=== PATIENT | female | born 1940 | race Caucasian/White ===

== ENCOUNTER → 2018-04-08 | Outpatient (CLI) | payer BC ==
[~2018-04-08] MED LIST: REGADENOSON 0.4 MG/5 ML SYRINGE ONE
== END | disposition home or self-care (01) ==
LOC: CFH 08:31
PROVIDERS: ATTEND Internal Medicine Cardiovascular Disease
DX: I65.21 Occlusion and stenosis of right carotid artery (principal); I73.9 Peripheral vascular disease, unspecified; I10 Essential (primary) hypertension
CPT/HCPCS: 93880; J2785

== ENCOUNTER → 2018-04-10 | Outpatient (CLI) | payer BC | END | disposition home or self-care (01) | LOC: CFH 08:40 | PROVIDERS: ATTEND Internal Medicine Cardiovascular Disease | DX: I65.21 Occlusion and stenosis of right carotid artery (principal); I73.9 Peripheral vascular disease, unspecified; I10 Essential (primary) hypertension; I45.10 Unspecified right bundle-branch block | CPT/HCPCS: 78452; 93017; A9502; J2785 ==

== ENCOUNTER → 2018-04-24 | Outpatient (CLI) | payer BC, MEDICARE | END | disposition home or self-care (01) | LOC: CVU 07:40 | PROVIDERS: ATTEND Internal Medicine Cardiovascular Disease | DX: I08.3 Combined rheumatic disorders of mitral, aortic and tricuspid valves (principal); I70.8 Atherosclerosis of other arteries; R06.02 Shortness of breath; E78.5 Hyperlipidemia, unspecified; E11.9 Type 2 diabetes mellitus without complications; Z85.3 Personal history of malignant neoplasm of breast | CPT/HCPCS: 93306; 93978 ==

== ENCOUNTER → 2018-05-06 | Outpatient (CLI) | payer BC, MEDICARE ==
[~2018-05-06] MED LIST changes: +ASPI-430 PO; +ATOR-2 PO; +AZIL40TA PO; +BIOT25005 PO; +EMPA10TA PO; +FERR1TAB10 PO; +GABA300C PO; +GLIP10TA13 PO; +INSU100V13 SC; +METF1000 PO; +MULT-658 PO; +NITR100C57 PO; +OMEP-110 PO; +PIOG30TA23 PO; -REGADENOSON 0.4 MG/5 ML SYRINGE ONE
== END | disposition home or self-care (01) ==
LOC: CFH 11:43
PROVIDERS: ATTEND Nurse Practitioner Family
DX: M85.88 Other specified disorders of bone density and structure, other site (principal); N95.9 Unspecified menopausal and perimenopausal disorder
CPT/HCPCS: 77080

== ENCOUNTER 2018-05-08 14:48 | Inpatient (IN) | payer MEDICARE ==
[~2018-05-08] VITALS: Ht 165.1 cm; Wt 80.0 kg
[2018-05-08] MEDS ORDERED: ASPIRIN 81 MG TABLET CHEW PO ONE (15:00)
[2018-05-08] MEDS ORDERED: ASPIRIN 81 MG TABLET CHEW ONE (15:11)
[2018-05-08 15:17] LABS: BASOPHILS % (AUTO) 0 % (0-1); EOSINOPHILS % (AUTO) 0 % (1-7); LYMPHOCYTES # (AUTO) 1.18 x10^3/uL (1-3.4); LYMPHOCYTES % (AUTO) 9 % (22-44); MD NO; MEAN CORPUSCULAR HEMOGLOBIN 29.2 pg (27.0-34.8); MEAN CORPUSCULAR HGB CONC 32.2 g/dL (32.4-35.8); MEAN CORPUSCULAR VOLUME 90.8 fL (80-100); MEAN PLATELET VOLUME 8.6 fL (7.4-10.4); MONOCYTES # (AUTO) 1.32 x10^3/uL (0.2-0.8); MONOCYTES % (AUTO) 10 % (2-9); NEUTROPHILS # (AUTO) 10.59 x10^3/uL (1.8-6.8); NEUTROPHILS % (AUTO) 81 % (42-75); PLATELET COUNT 278 x10^3/uL (130-400); RED BLOOD COUNT 4.35 x10^6/uL (3.82-5.3); RED CELL DISTRIBUTION WIDTH 16.5 % (9.6-15.2)
[2018-05-08 15:29] LABS: ALBUMIN 3.7 g/dL (3.4-5.0); ANION GAP 10 mmol/L (5-15); CALCIUM 9.5 mg/dL (8.5-10.1); CHLORIDE 106 mmol/L (98-107)
[2018-05-08 15:33] LABS: CREATININE 1.37 mg/dL (0.55-1.02); TROPONIN I < 0.015 ng/mL (0.000-0.045)
[2018-05-08] MEDS ORDERED: NITROGLYCERIN SINGLE TAB 0.4 MG SL ONE (15:46)
[2018-05-08] MEDS ORDERED: SODIUM CHLORIDE FLUSH 10ML SYR IVF ONE (16:00)
[2018-05-08] MEDS ORDERED: NITROGLYCERIN SINGLE TAB 0.4 MG SL PRN (16:00)
[2018-05-08] MEDS ORDERED: NITROGLYCERIN 0.4 MG BOTTLE (25 TABS) SL PRN (18:30)
[2018-05-08] MEDS ORDERED: ONDANSETRON ODT 4 MG PO PRN (18:30)
[2018-05-08] MEDS ORDERED: POLYETHYLENE GLYCOL 17 GM PACKET PO PRN (18:30)
[2018-05-08] MEDS ORDERED: BISACODYL 10 MG SUPP PR PRN (18:30)
[2018-05-08] MEDS ORDERED: morphine SULFATE 10 MG/ML, 1ML IVPush PRN (18:30)
[2018-05-08 19:32] LABS: HEMOGLOBIN A1C 8.1 % (4.2-6.3)
[2018-05-08 19:59] VITALS: BP 121/70
[2018-05-08] MEDS: SODIUM CHLORIDE 0.9% 1,000 ML IV SCH (21:33)
[2018-05-08] MEDS: CEFTRIAXONE PMX 1GM/50ML 50 ML IV SCH (21:33)
[2018-05-08] MEDS: ACETAMINOPHEN 325 MG TABLET PO PRN (21:34)
[2018-05-08 21:41] LABS: TROPONIN I < 0.015 ng/mL (0.000-0.045)
[2018-05-08] MEDS: HEPARIN 5,000 UNITS/ML, 1ML SQ SCH (22:18)
[2018-05-08] MEDS: DOXYCYCLINE 100 MG in DEXTROSE 5% 250 ML IV SCH (22:18)
[2018-05-08] MEDS ORDERED: BIOT25005 PO (22:44)
[2018-05-08] MEDS ORDERED: ASPI-430 PO (22:44)
[2018-05-08] MEDS ORDERED: GLIP10TA13 PO (22:44)
[2018-05-08] MEDS ORDERED: GABA300C PO (22:44)
[2018-05-08] MEDS ORDERED: ATOR-2 PO (22:44)
[2018-05-08] MEDS ORDERED: EMPA10TA PO (22:44)
[2018-05-08] MEDS ORDERED: INSU100V13 SC (22:44)
[2018-05-08] MEDS ORDERED: MULT-658 PO (22:44)
[2018-05-08] MEDS ORDERED: PIOG30TA23 PO (22:44)
[2018-05-08] MEDS ORDERED: FERR1TAB10 PO (22:44)
[2018-05-08] MEDS ORDERED: NITR100C57 PO (22:44)
[2018-05-08] MEDS ORDERED: METF1000 PO (22:44)
[2018-05-08] MEDS ORDERED: OMEP-110 PO (22:44)
[2018-05-08] MEDS ORDERED: AZIL40TA PO (22:44)
[2018-05-08] MEDS ORDERED: KETOROLAC 30 MG/1 ML IVPush PRN (23:00)
[2018-05-09 03:15] VITALS: BP 115/68
[2018-05-09 03:43] LABS: BASOPHILS # (AUTO) 0.03 x10^3/uL (0-0.1); BASOPHILS % (AUTO) 0 % (0-1); EOSINOPHILS # (AUTO) 0.26 x10^3/uL (0-0.4); EOSINOPHILS % (AUTO) 3 % (1-7); LYMPHOCYTES # (AUTO) 1.86 x10^3/uL (1-3.4); LYMPHOCYTES % (AUTO) 22 % (22-44); MD NO; MEAN CORPUSCULAR HEMOGLOBIN 29.8 pg (27.0-34.8); MEAN CORPUSCULAR HGB CONC 32.9 g/dL (32.4-35.8); MEAN CORPUSCULAR VOLUME 90.4 fL (80-100); MEAN PLATELET VOLUME 8.8 fL (7.4-10.4); MONOCYTES # (AUTO) 0.91 x10^3/uL (0.2-0.8); MONOCYTES % (AUTO) 11 % (2-9); NEUTROPHILS # (AUTO) 5.34 x10^3/uL (1.8-6.8); NEUTROPHILS % (AUTO) 64 % (42-75); PLATELET COUNT 196 x10^3/uL (130-400); RED CELL DISTRIBUTION WIDTH 16.3 % (9.6-15.2)
[2018-05-09 03:44] LABS: ALANINE AMINOTRANSFERASE 20 U/L (12-78); ALBUMIN 2.8 g/dL (3.4-5.0); ANION GAP 8 mmol/L (5-15); CALCIUM 8.2 mg/dL (8.5-10.1); CHLORIDE 109 mmol/L (98-107); CREATININE 1.22 mg/dL (0.55-1.02)
[2018-05-09 03:49] LABS: ALKALINE PHOSPHATASE 67 U/L (45-117); BILIRUBIN,TOTAL 0.5 mg/dL (0.2-1.0); TOTAL PROTEIN 6.8 g/dL (6.4-8.2); TROPONIN I 0.036 ng/mL (0.000-0.045)
[2018-05-09] MEDS: HEPARIN 5,000 UNITS/ML, 1ML SQ SCH ×3 (05:49→22:00)
[2018-05-09] MEDS: ASPIRIN 81 MG TABLET EC PO SCH (05:59)
[2018-05-09] MEDS ORDERED: ASPIRIN 325 MG TABLET EC PO SCH (06:00)
[2018-05-09] MEDS: SENNA/DOCUSATE TABLET PO SCH (09:00)
[2018-05-09 09:03] VITALS: BP 116/69
[2018-05-09] MEDS: SODIUM CHLORIDE 0.9% 1,000 ML IV SCH ×2 (09:21→21:41)
[2018-05-09] MEDS: DOXYCYCLINE 100 MG in DEXTROSE 5% 250 ML IV SCH ×2 (09:21→22:40)
[2018-05-09] MEDS ORDERED: NITROFURANTOIN MACROCRYSTAL 100 MG PO PRN (11:30)
[2018-05-09] MEDS ORDERED: INSULIN GLARGINE 100 UNITS/ML, PEN SQ-INSULIN SCH (11:30)
[2018-05-09] MEDS: [UNRECOGNIZED DRUG - REMARK] MC SCH ×2 (12:00→19:49)
[2018-05-09 14:03] VITALS: BP 129/73
[2018-05-09 19:23] VITALS: BP 128/70
[2018-05-09] MEDS: CEFTRIAXONE PMX 1GM/50ML 50 ML IV SCH (21:41)
[2018-05-09] MEDS: ATORVASTATIN 80 MG TABLET PO SCH (21:42)
[2018-05-09] MEDS: metFORMIN 500 MG TABLET PO SCH (21:42)
[2018-05-09] MEDS: GABAPENTIN 300 MG CAPSULE PO SCH (21:42)
[2018-05-09] MEDS: INSULIN DETEMIR 100 UNITS/ML, PEN SQ-INSULIN SCH (21:44)
[2018-05-10 01:19] VITALS: BP 120/73
[2018-05-10] MEDS: [UNRECOGNIZED DRUG - REMARK] MC SCH ×3 (04:00→19:49)
[2018-05-10 05:21] LABS: ANION GAP 8 mmol/L (5-15); CALCIUM 8.4 mg/dL (8.5-10.1); CHLORIDE 111 mmol/L (98-107)
[2018-05-10 05:28] LABS: CREATININE 0.88 mg/dL (0.55-1.02); TROPONIN I 0.896 ng/mL (0.000-0.045)
[2018-05-10] MEDS: ASPIRIN 81 MG TABLET EC PO SCH (05:55)
[2018-05-10] MEDS: HEPARIN 5,000 UNITS/ML, 1ML SQ SCH ×3 (06:00→22:00)
[2018-05-10 06:46] VITALS: BP 149/78
[2018-05-10 06:51] LABS: BASOPHILS # (AUTO) 0.06 x10^3/uL (0-0.1); BASOPHILS % (AUTO) 1 % (0-1); EOSINOPHILS # (AUTO) 0.28 x10^3/uL (0-0.4); EOSINOPHILS % (AUTO) 3 % (1-7); LYMPHOCYTES # (AUTO) 1.96 x10^3/uL (1-3.4); LYMPHOCYTES % (AUTO) 20 % (22-44); MD NO; MEAN CORPUSCULAR HEMOGLOBIN 29.7 pg (27.0-34.8); MEAN CORPUSCULAR HGB CONC 32.9 g/dL (32.4-35.8); MEAN CORPUSCULAR VOLUME 90.3 fL (80-100); MEAN PLATELET VOLUME 8.6 fL (7.4-10.4); MONOCYTES # (AUTO) 0.82 x10^3/uL (0.2-0.8); MONOCYTES % (AUTO) 8 % (2-9); NEUTROPHILS # (AUTO) 6.65 x10^3/uL (1.8-6.8); NEUTROPHILS % (AUTO) 68 % (42-75); PLATELET COUNT 238 x10^3/uL (130-400); RED BLOOD COUNT 3.99 x10^6/uL (3.82-5.3); RED CELL DISTRIBUTION WIDTH 16.1 % (9.6-15.2)
[2018-05-10] MEDS: INSULIN DETEMIR 100 UNITS/ML, PEN SQ-INSULIN SCH ×2 (08:00→20:27)
[2018-05-10] MEDS: SENNA/DOCUSATE TABLET PO SCH (08:55)
[2018-05-10] MEDS: OMEPRAZOLE 20 MG CAPSULE.DR PO SCH (08:55)
[2018-05-10] MEDS: PIOGLITAZONE 15 MG TABLET PO SCH (08:55)
[2018-05-10] MEDS: FERROUS SULFATE 325 MG TABLET PO SCH (08:55)
[2018-05-10] MEDS: MULTIVITAMIN 1 TABLET PO SCH (08:55)
[2018-05-10] MEDS: metFORMIN 500 MG TABLET PO SCH ×2 (08:56→20:28)
[2018-05-10] MEDS ORDERED: ASPIRIN 81 MG TABLET EC PO SCH (09:00)
[2018-05-10] MEDS: AZILSARTAN MEDOXOMIL 40 MG HOMEMEDPO SCH (09:00)
[2018-05-10] MEDS ORDERED: BIOTIN 10000 MCG PO SCH (09:00)
[2018-05-10] MEDS: EMPAGLIFLOZIN 10 MG HOMEMEDPO SCH (09:00)
[2018-05-10] MEDS: SODIUM CHLORIDE 0.9% 1,000 ML IV SCH ×2 (09:03→20:04)
[2018-05-10] MEDS: DOXYCYCLINE 100 MG in DEXTROSE 5% 250 ML IV SCH ×2 (10:39→22:38)
[2018-05-10 12:46] VITALS: BP 133/76
[2018-05-10] MEDS: ACETAMINOPHEN 325 MG TABLET PO PRN ×2 (13:38→20:43)
[2018-05-10 19:03] VITALS: BP 117/66
[2018-05-10] MEDS: CEFTRIAXONE PMX 1GM/50ML 50 ML IV SCH (20:27)
[2018-05-10] MEDS: ATORVASTATIN 80 MG TABLET PO SCH (20:28)
[2018-05-10] MEDS: GABAPENTIN 300 MG CAPSULE PO SCH (20:29)
[2018-05-11] MEDS ORDERED: TEMAZEPAM 15 MG CAPSULE PO PRN (01:00)
[2018-05-11 01:25] VITALS: BP 151/70
[2018-05-11 04:48] LABS: BASOPHILS # (AUTO) 0.04 x10^3/uL (0-0.1); BASOPHILS % (AUTO) 1 % (0-1); EOSINOPHILS # (AUTO) 0.34 x10^3/uL (0-0.4); EOSINOPHILS % (AUTO) 4 % (1-7); LYMPHOCYTES # (AUTO) 1.68 x10^3/uL (1-3.4); LYMPHOCYTES % (AUTO) 22 % (22-44); MD NO; MEAN CORPUSCULAR HEMOGLOBIN 29.8 pg (27.0-34.8); MEAN CORPUSCULAR HGB CONC 32.9 g/dL (32.4-35.8); MEAN CORPUSCULAR VOLUME 90.7 fL (80-100); MEAN PLATELET VOLUME 8.6 fL (7.4-10.4); MONOCYTES # (AUTO) 0.76 x10^3/uL (0.2-0.8); MONOCYTES % (AUTO) 10 % (2-9); NEUTROPHILS # (AUTO) 4.97 x10^3/uL (1.8-6.8); NEUTROPHILS % (AUTO) 64 % (42-75); PLATELET COUNT 226 x10^3/uL (130-400); RED BLOOD COUNT 3.74 x10^6/uL (3.82-5.3); RED CELL DISTRIBUTION WIDTH 15.9 % (9.6-15.2)
[2018-05-11 05:00] LABS: ANION GAP 9 mmol/L (5-15); CALCIUM 8.6 mg/dL (8.5-10.1); CHLORIDE 112 mmol/L (98-107); CREATININE 0.94 mg/dL (0.55-1.02)
[2018-05-11 05:57] LABS: INTERNATIONAL NORMALIZED RATIO 1.06 (0.93-1.1); PROTHROMBIN TIME 11.1 Seconds (9.6-11.5)
[2018-05-11] MEDS: HEPARIN 5,000 UNITS/ML, 1ML SQ SCH ×3 (06:00→22:00)
[2018-05-11] MEDS: ASPIRIN 81 MG TABLET EC PO SCH (06:07)
[2018-05-11 06:52] VITALS: BP 134/75
[2018-05-11] MEDS: INSULIN DETEMIR 100 UNITS/ML, PEN SQ-INSULIN SCH ×2 (08:00→20:51)
[2018-05-11] MEDS: MULTIVITAMIN 1 TABLET PO SCH (09:00)
[2018-05-11] MEDS: OMEPRAZOLE 20 MG CAPSULE.DR PO SCH (09:00)
[2018-05-11] MEDS: EMPAGLIFLOZIN 10 MG HOMEMEDPO SCH (09:00)
[2018-05-11] MEDS: SENNA/DOCUSATE TABLET PO SCH (09:00)
[2018-05-11] MEDS: AZILSARTAN MEDOXOMIL 40 MG HOMEMEDPO SCH (09:00)
[2018-05-11] MEDS: PIOGLITAZONE 15 MG TABLET PO SCH (09:00)
[2018-05-11] MEDS: FERROUS SULFATE 325 MG TABLET PO SCH (09:00)
[2018-05-11] MEDS: DIPHENHYDRAMINE 50 MG CAPSULE PO SCH ×2 (09:56→20:51)
[2018-05-11] MEDS: FAMOTIDINE 20 MG TABLET PO SCH ×2 (09:56→20:51)
[2018-05-11] MEDS: DOXYCYCLINE 100 MG in DEXTROSE 5% 250 ML IV SCH ×2 (10:19→22:48)
[2018-05-11] MEDS: SODIUM CHLORIDE 0.9% 1,000 ML IV SCH (10:19)
[2018-05-11] MEDS ORDERED: SODIUM CHLORIDE 0.9% 1,000 ML IV SCH ×2 (11:00→15:56)
[2018-05-11 12:23] VITALS: BP 127/75
[2018-05-11] MEDS ORDERED: VERAPAMIL 2.5 MG/ML, 2ML ONE (13:53)
[2018-05-11] MEDS ORDERED: FENTANYL PF 100 MCG/2ML ONE (13:53)
[2018-05-11] MEDS ORDERED: HEPARIN 1,000 UNITS/ML, 10ML ONE (13:53)
[2018-05-11] MEDS ORDERED: MIDAZOLAM 1 MG/ML, 2ML ONE ×2 (13:53→15:07)
[2018-05-11] MEDS ORDERED: LIDOCAINE-MPF 1%, 5ML ONE (13:53)
[2018-05-11] MEDS ORDERED: methylPREDNISolone SOD SUCC 125 MG/2 ML ONE (13:54)
[2018-05-11] MEDS ORDERED: DIPHENHYDRAMINE 50 MG/ML, 1ML ONE (13:54)
[2018-05-11 18:42] VITALS: BP 120/72
[2018-05-11] MEDS: CEFTRIAXONE PMX 1GM/50ML 50 ML IV SCH (20:50)
[2018-05-11] MEDS: ATORVASTATIN 80 MG TABLET PO SCH (20:51)
[2018-05-11] MEDS: GABAPENTIN 300 MG CAPSULE PO SCH (20:51)
[2018-05-12 00:52] VITALS: BP 123/73
[2018-05-12] MEDS: HEPARIN 5,000 UNITS/ML, 1ML SQ SCH ×3 (05:15→22:00)
[2018-05-12 06:09] LABS: CHLORIDE 109 mmol/L (98-107)
[2018-05-12] MEDS: ASPIRIN 81 MG TABLET EC PO SCH (06:13)
[2018-05-12 06:25] LABS: BASOPHILS % (AUTO) 0 % (0-1); EOSINOPHILS % (AUTO) 0 % (1-7); LYMPHOCYTES % (AUTO) 12 % (22-44); MD SCAN; MEAN CORPUSCULAR HEMOGLOBIN 29.9 pg (27.0-34.8); MEAN CORPUSCULAR HGB CONC 33.1 g/dL (32.4-35.8); MEAN CORPUSCULAR VOLUME 90.1 fL (80-100); MEAN PLATELET VOLUME 9.1 fL (7.4-10.4); MONOCYTES # (AUTO) 0.13 x10^3/uL (0.2-0.8); MONOCYTES % (AUTO) 1 % (2-9); NEUTROPHILS # (AUTO) 8.11 x10^3/uL (1.8-6.8); NEUTROPHILS % (AUTO) 87 % (42-75); PLATELET COUNT 230 x10^3/uL (130-400); RED BLOOD COUNT 4.31 x10^6/uL (3.82-5.3); RED CELL DISTRIBUTION WIDTH 15.6 % (9.6-15.2)
[2018-05-12 06:28] LABS: ANION GAP 11 mmol/L (5-15); CALCIUM 9.2 mg/dL (8.5-10.1); CREATININE 0.97 mg/dL (0.55-1.02)
[2018-05-12 06:58] VITALS: BP 144/76
[2018-05-12] MEDS: INSULIN DETEMIR 100 UNITS/ML, PEN SQ-INSULIN SCH ×2 (08:00→21:34)
[2018-05-12] MEDS: SENNA/DOCUSATE TABLET PO SCH (08:13)
[2018-05-12] MEDS: MULTIVITAMIN 1 TABLET PO SCH (08:13)
[2018-05-12] MEDS: PIOGLITAZONE 15 MG TABLET PO SCH (08:13)
[2018-05-12] MEDS: OMEPRAZOLE 20 MG CAPSULE.DR PO SCH (08:13)
[2018-05-12] MEDS: FERROUS SULFATE 325 MG TABLET PO SCH (08:13)
[2018-05-12] MEDS: EMPAGLIFLOZIN 10 MG HOMEMEDPO SCH (08:14)
[2018-05-12] MEDS: AZILSARTAN MEDOXOMIL 40 MG HOMEMEDPO SCH (08:14)
[2018-05-12] MEDS: DOXYCYCLINE 100 MG in DEXTROSE 5% 250 ML IV SCH ×2 (10:09→22:00)
[2018-05-12 13:29] VITALS: BP 118/67
[2018-05-12 20:00] VITALS: BP 110/63
[2018-05-12] MEDS: CEFTRIAXONE PMX 1GM/50ML 50 ML IV SCH ×2 (21:00→21:16)
[2018-05-12] MEDS: ATORVASTATIN 80 MG TABLET PO SCH (21:17)
[2018-05-12] MEDS: GABAPENTIN 300 MG CAPSULE PO SCH (21:17)
[2018-05-13] MEDS: HEPARIN 5,000 UNITS/ML, 1ML SQ SCH ×3 (00:11→19:52)
[2018-05-13 02:00] VITALS: BP 128/74
[2018-05-13] MEDS: ASPIRIN 81 MG TABLET EC PO SCH (05:08)
[2018-05-13 05:35] LABS: ANION GAP 9 mmol/L (5-15); CHLORIDE 111 mmol/L (98-107); CREATININE 1.03 mg/dL (0.55-1.02)
[2018-05-13 05:56] LABS: BASOPHILS # (AUTO) 0.04 x10^3/uL (0-0.1); BASOPHILS % (AUTO) 1 % (0-1); EOSINOPHILS # (AUTO) 0.26 x10^3/uL (0-0.4); EOSINOPHILS % (AUTO) 3 % (1-7); LYMPHOCYTES # (AUTO) 1.86 x10^3/uL (1-3.4); LYMPHOCYTES % (AUTO) 20 % (22-44); MD NO; MEAN CORPUSCULAR VOLUME 90.9 fL (80-100); MEAN PLATELET VOLUME 8.4 fL (7.4-10.4); MONOCYTES # (AUTO) 0.72 x10^3/uL (0.2-0.8); MONOCYTES % (AUTO) 8 % (2-9); NEUTROPHILS # (AUTO) 6.54 x10^3/uL (1.8-6.8); NEUTROPHILS % (AUTO) 69 % (42-75); PLATELET COUNT 292 x10^3/uL (130-400); RED BLOOD COUNT 3.99 x10^6/uL (3.82-5.3); RED CELL DISTRIBUTION WIDTH 15.6 % (9.6-15.2)
[2018-05-13 07:15] VITALS: BP 128/74
[2018-05-13] MEDS ORDERED: POTASSIUM CHLORIDE 20 MEQ TAB.ER.PRT PO ONE ×2 (07:30→14:00)
[2018-05-13] MEDS: FERROUS SULFATE 325 MG TABLET PO SCH ×2 (08:34→09:00)
[2018-05-13] MEDS: INSULIN DETEMIR 100 UNITS/ML, PEN SQ-INSULIN SCH ×2 (08:34→21:24)
[2018-05-13] MEDS: SENNA/DOCUSATE TABLET PO SCH (08:35)
[2018-05-13] MEDS: MULTIVITAMIN 1 TABLET PO SCH (08:35)
[2018-05-13] MEDS: OMEPRAZOLE 20 MG CAPSULE.DR PO SCH (08:35)
[2018-05-13] MEDS: PIOGLITAZONE 15 MG TABLET PO SCH (08:35)
[2018-05-13] MEDS: AZILSARTAN MEDOXOMIL 40 MG HOMEMEDPO SCH (08:37)
[2018-05-13] MEDS: EMPAGLIFLOZIN 10 MG HOMEMEDPO SCH (08:38)
[2018-05-13] MEDS: DOXYCYCLINE 100 MG in DEXTROSE 5% 250 ML IV SCH (10:00)
[2018-05-13 13:50] VITALS: BP 103/63
[2018-05-13] MEDS: CEFDINIR 300 MG CAPSULE PO SCH (16:18)
[2018-05-13 19:51] VITALS: BP 117/94
[2018-05-13] MEDS ORDERED: DOXYCYCLINE 100MG TABLET ONE (21:07)
[2018-05-13] MEDS: DOXYCYCLINE 100MG CAP PO SCH (21:21)
[2018-05-13] MEDS: GABAPENTIN 300 MG CAPSULE PO SCH (21:21)
[2018-05-13] MEDS: metFORMIN 500 MG TABLET PO SCH (21:22)
[2018-05-13] MEDS: ATORVASTATIN 80 MG TABLET PO SCH (21:22)
[2018-05-14 01:22] VITALS: BP 109/64
[2018-05-14] MEDS: HEPARIN 5,000 UNITS/ML, 1ML SQ SCH ×3 (04:03→19:21)
[2018-05-14] MEDS: ASPIRIN 81 MG TABLET EC PO SCH (04:41)
[2018-05-14] MEDS: CEFDINIR 300 MG CAPSULE PO SCH ×2 (04:41→18:03)
[2018-05-14 05:44] LABS: ANION GAP 8 mmol/L (5-15); CALCIUM 8.9 mg/dL (8.5-10.1); CHLORIDE 110 mmol/L (98-107); CREATININE 1.15 mg/dL (0.55-1.02)
[2018-05-14 07:02] VITALS: BP 114/72
[2018-05-14] MEDS ORDERED: DOXYCYCLINE 100MG TABLET ONE ×3 (08:01→21:04)
[2018-05-14] MEDS: PIOGLITAZONE 15 MG TABLET PO SCH (08:17)
[2018-05-14] MEDS: metFORMIN 500 MG TABLET PO SCH ×2 (08:17→21:11)
[2018-05-14] MEDS: SENNA/DOCUSATE TABLET PO SCH (08:17)
[2018-05-14] MEDS: MULTIVITAMIN 1 TABLET PO SCH (08:18)
[2018-05-14] MEDS: DOXYCYCLINE 100MG CAP PO SCH ×2 (08:18→21:10)
[2018-05-14] MEDS: OMEPRAZOLE 20 MG CAPSULE.DR PO SCH (08:18)
[2018-05-14] MEDS: FERROUS SULFATE 325 MG TABLET PO SCH (08:18)
[2018-05-14] MEDS: INSULIN DETEMIR 100 UNITS/ML, PEN SQ-INSULIN SCH ×2 (08:19→22:06)
[2018-05-14] MEDS: AZILSARTAN MEDOXOMIL 40 MG HOMEMEDPO SCH (08:19)
[2018-05-14] MEDS: EMPAGLIFLOZIN 10 MG HOMEMEDPO SCH (08:20)
[2018-05-14] MEDS ORDERED: CEFD300C37 PO (12:09)
[2018-05-14] MEDS ORDERED: DOXY100C2 PO (12:09)
[2018-05-14 13:11] VITALS: BP 94/61
[2018-05-14 20:12] VITALS: BP 111/68
[2018-05-14] MEDS: ATORVASTATIN 80 MG TABLET PO SCH (21:11)
[2018-05-14] MEDS: GABAPENTIN 300 MG CAPSULE PO SCH (21:11)
[2018-05-15 03:59] VITALS: BP 95/56
[2018-05-15] MEDS: ASPIRIN 81 MG TABLET EC PO SCH (04:03)
[2018-05-15] MEDS: CEFDINIR 300 MG CAPSULE PO SCH (04:03)
[2018-05-15] MEDS: HEPARIN 5,000 UNITS/ML, 1ML SQ SCH (04:04)
[2018-05-15 07:10] VITALS: BP 94/55
[2018-05-15] MEDS: PIOGLITAZONE 15 MG TABLET PO SCH (10:18)
[2018-05-15] MEDS: metFORMIN 500 MG TABLET PO SCH (10:18)
[2018-05-15] MEDS: MULTIVITAMIN 1 TABLET PO SCH (10:19)
[2018-05-15] MEDS: SENNA/DOCUSATE TABLET PO SCH (10:19)
[2018-05-15] MEDS: FERROUS SULFATE 325 MG TABLET PO SCH (10:19)
[2018-05-15] MEDS: DOXYCYCLINE 100MG CAP PO SCH (10:19)
[2018-05-15] MEDS: OMEPRAZOLE 20 MG CAPSULE.DR PO SCH (10:19)
[2018-05-15] MEDS: AZILSARTAN MEDOXOMIL 40 MG HOMEMEDPO SCH (10:22)
[2018-05-15] MEDS: INSULIN DETEMIR 100 UNITS/ML, PEN SQ-INSULIN SCH (10:22)
[2018-05-15] MEDS: EMPAGLIFLOZIN 10 MG HOMEMEDPO SCH (10:23)
[2018-05-15] MEDS ORDERED: METO25TA91 PO (13:32)
[2018-05-15 14:05] VITALS: BP 107/61
== END 2018-05-15 15:17 | disposition home or self-care (01) | DRG 280 ==
LOC: ED 16:00 → EDIP 17:22 → 5SO 18:30 → DCLOUNGE 05-15 14:51
PROVIDERS: ADMIT Internal Medicine; ATTEND Internal Medicine
PROC: 4A023N7 Measurement of Cardiac Sampling and Pressure, Left Heart, Percutaneous Approach (ICD-10-PCS; principal; 2018-05-11)
PROC: B2111ZZ Fluoroscopy of Multiple Coronary Arteries using Low Osmolar Contrast (ICD-10-PCS; 2018-05-11)
PROC: B241ZZ3 Ultrasonography of Multiple Coronary Arteries, Intravascular (ICD-10-PCS; 2018-05-11)
DX: I21.4 Non-ST elevation (NSTEMI) myocardial infarction (principal); J18.9 Pneumonia, unspecified organism; E11.22 Type 2 diabetes mellitus with diabetic chronic kidney disease; E11.40 Type 2 diabetes mellitus with diabetic neuropathy, unspecified; E11.65 Type 2 diabetes mellitus with hyperglycemia; E78.5 Hyperlipidemia, unspecified; E87.6 Hypokalemia; I08.0 Rheumatic disorders of both mitral and aortic valves; I13.10 Hypertensive heart and chronic kidney disease without heart failure, with stage 1 through stage 4 chronic kidney disease, or unspecified chronic kidney disease; I25.10 Atherosclerotic heart disease of native coronary artery without angina pectoris; I95.9 Hypotension, unspecified; E11.51 Type 2 diabetes mellitus with diabetic peripheral angiopathy without gangrene; N18.9 Chronic kidney disease, unspecified; Z96.698 Presence of other orthopedic joint implants; H26.9 Unspecified cataract; M54.9 Dorsalgia, unspecified; Z90.49 Acquired absence of other specified parts of digestive tract; Z79.4 Long term (current) use of insulin; Z82.3 Family history of stroke; Z82.49 Family history of ischemic heart disease and other diseases of the circulatory system; Z85.3 Personal history of malignant neoplasm of breast; Z87.891 Personal history of nicotine dependence; Z91.041 Radiographic dye allergy status; Z92.3 Personal history of irradiation; Z95.5 Presence of coronary angioplasty implant and graft; Z88.2 Allergy status to sulfonamides; Z88.5 Allergy status to narcotic agent
CPT/HCPCS: 36415; 71046; 80048; 80053; 82040; 82962; 83036; 83605; 83880; 84484; 85025; 85610; 87040; 92978; 93005; 93454; 99156; 99157; 99285; C1753; C1894; G0378; J0696; J1644; J1885; J2250; J3010; J7060; C1769; C1887; J1200; J2930; J7030; J7512; Q9967

== ENCOUNTER → 2018-06-01 | Outpatient (CLI) | payer MEDICARE ==
[~2018-06-01] MED LIST changes: +CEFD300C37 PO; +DIPHENHYDRAMINE 50 MG/ML, 1ML ONE; +DOXY100C2 PO; +FAMOTIDINE 20 MG/2 ML ONE; +LIDOCAINE 1%, 10ML SQ ONE; +LIDOCAINE-MPF 1%, 5ML ONE; +METO25TA91 PO; +METOPROLOL 1 MG/ML, 5ML ONE; +methylPREDNISolone SOD SUCC 125 MG/2 ML ONE
== END | disposition home or self-care (01) ==
LOC: RAD 11:39
PROVIDERS: ATTEND Internal Medicine Cardiovascular Disease
DX: I35.0 Nonrheumatic aortic (valve) stenosis (principal)
CPT/HCPCS: 94060; 94726; 94729; J1200; J2930; J3490

== ENCOUNTER 2018-06-12 10:38 | Outpatient (CLI) | payer MEDICARE ==
[~2018-06-12 10:38] MED LIST changes: -DIPHENHYDRAMINE 50 MG/ML, 1ML ONE; -FAMOTIDINE 20 MG/2 ML ONE; -LIDOCAINE 1%, 10ML SQ ONE; -LIDOCAINE-MPF 1%, 5ML ONE; -METOPROLOL 1 MG/ML, 5ML ONE; -methylPREDNISolone SOD SUCC 125 MG/2 ML ONE
[2018-06-12] MEDS ORDERED: DIPHENHYDRAMINE 50 MG/ML, 1ML ONE (12:00)
[2018-06-12] MEDS ORDERED: FAMOTIDINE 20 MG/2 ML ONE (12:00)
[2018-06-12] MEDS ORDERED: methylPREDNISolone SOD SUCC 125 MG/2 ML ONE (12:00)
[2018-06-12] MEDS ORDERED: METOPROLOL 1 MG/ML, 5ML ONE ×2 (12:33→12:52)
[2018-06-12] MEDS ORDERED: OMNIPAQUE 350 MG/ML, 150 ML BOTTLE ONE (13:22)
== END 2018-06-12 23:59 | disposition home or self-care (01) ==
LOC: RAD 10:38
PROVIDERS: ATTEND Internal Medicine Cardiovascular Disease
DX: I70.0 Atherosclerosis of aorta (principal); E04.2 Nontoxic multinodular goiter; K76.0 Fatty (change of) liver, not elsewhere classified; N28.1 Cyst of kidney, acquired; K57.30 Diverticulosis of large intestine without perforation or abscess without bleeding; D25.9 Leiomyoma of uterus, unspecified; M51.37 Other intervertebral disc degeneration, lumbosacral region; I25.10 Atherosclerotic heart disease of native coronary artery without angina pectoris
CPT/HCPCS: 71275; 74174; J1200; J2930; J3490; Q9967

== ENCOUNTER 2018-06-23 07:37 | Inpatient (IN) | payer MEDICARE ==
[~2018-06-23] VITALS: Ht 165.1 cm; Wt 79.9 kg
[2018-06-23] MEDS ORDERED: SODIUM CHLORIDE 0.9% 1,000 ML IV ONE (07:59)
[2018-06-23] MEDS ORDERED: ONDANSETRON 2MG/ML, 2ML IVPush PRN (08:00)
[2018-06-23] MEDS ORDERED: methylPREDNISolone SOD SUCC 125 MG/2 ML IVPush ONE (08:00)
[2018-06-23] MEDS ORDERED: FAMOTIDINE 20 MG/2 ML IVPush ONE (08:00)
[2018-06-23] MEDS ORDERED: CHLORHEXIDINE 15 ML UDC MM PRN (08:00)
[2018-06-23] MEDS ORDERED: DIPHENHYDRAMINE 50 MG/ML, 1ML IVPush ONE (08:00)
[2018-06-23 08:05] VITALS: BP 128/55
[2018-06-23] MEDS ORDERED: PLEASE ENTER HEIGHT AND WEIGHT MC SCH (08:30)
[2018-06-23] MEDS ORDERED: FAMOTIDINE 20 MG/2 ML ONE (08:30)
[2018-06-23] MEDS ORDERED: methylPREDNISolone SOD SUCC 125 MG/2 ML ONE (08:31)
[2018-06-23] MEDS ORDERED: DIPHENHYDRAMINE 50 MG/ML, 1ML ONE (08:31)
[2018-06-23] MEDS ORDERED: CHOL100012 PO (08:37)
[2018-06-23] MEDS ORDERED: LACT1CAP35 PO (08:37)
[2018-06-23 09:02] LABS: BASOPHILS # (AUTO) 0.06 x10^3/uL (0-0.1); BASOPHILS % (AUTO) 1 % (0-1); EOSINOPHILS # (AUTO) 0.23 x10^3/uL (0-0.4); EOSINOPHILS % (AUTO) 4 % (1-7); LYMPHOCYTES # (AUTO) 1.69 x10^3/uL (1-3.4); LYMPHOCYTES % (AUTO) 26 % (22-44); MD NO; MEAN CORPUSCULAR HEMOGLOBIN 28.9 pg (27.0-34.8); MEAN CORPUSCULAR VOLUME 90.2 fL (80-100); MEAN PLATELET VOLUME 9.1 fL (7.4-10.4); MONOCYTES # (AUTO) 0.74 x10^3/uL (0.2-0.8); MONOCYTES % (AUTO) 11 % (2-9); NEUTROPHILS % (AUTO) 58 % (42-75); PLATELET COUNT 251 x10^3/uL (130-400); RED BLOOD COUNT 4.31 x10^6/uL (3.82-5.3); RED CELL DISTRIBUTION WIDTH 17.3 % (9.6-15.2)
[2018-06-23 09:11] LABS: PROTHROMBIN TIME 10.5 Seconds (9.6-11.5)
[2018-06-23] MEDS ORDERED: FENTANYL PF 100 MCG/2ML ONE (09:11)
[2018-06-23 09:12] LABS: ALANINE AMINOTRANSFERASE 29 U/L (12-78); ALBUMIN 3.6 g/dL (3.4-5.0); ANION GAP 9 mmol/L (5-15); CHLORIDE 111 mmol/L (98-107)
[2018-06-23 09:17] LABS: ALKALINE PHOSPHATASE 93 U/L (45-117); BILIRUBIN,TOTAL 0.3 mg/dL (0.2-1.0)
[2018-06-23] MEDS ORDERED: PHENYLEPHRINE 10 MG/ML ONE (09:22)
[2018-06-23] MEDS ORDERED: PROTAMINE SULFATE 10 MG/ML, 5ML ONE (09:35)
[2018-06-23] MEDS ORDERED: ROCURONIUM 10MG/ML,5ML ONE (10:39)
[2018-06-23] MEDS ORDERED: PROPOFOL 10 MG/ML, 20ML ONE (10:39)
[2018-06-23] MEDS ORDERED: SUCCINYLCHOLINE 20 MG/ML, 10ML ONE (10:39)
[2018-06-23] MEDS ORDERED: ONDANSETRON 2MG/ML, 2ML ONE ×2 (10:39)
[2018-06-23] MEDS ORDERED: DEXAMETHASONE 4 MG/ML, 1ML ONE ×2 (10:39)
[2018-06-23] MEDS: ASPIRIN 81 MG TABLET EC PO SCH (10:43)
[2018-06-23] MEDS ORDERED: LABETALOL 20 MG/4 ML IVPush PRN (11:00)
[2018-06-23] MEDS ORDERED: CLOPIDOGREL 300 MG TABLET PO ONE (11:00)
[2018-06-23] MEDS ORDERED: DEXTROSE 50%, 50ML SYRINGE IVPush PRN (11:00)
[2018-06-23] MEDS ORDERED: INSULIN GLARGINE 100 UNITS/ML, PEN SQ-INSULIN SCH (11:00)
[2018-06-23] MEDS ORDERED: hydrALAzine 20 MG/ML, 1ML IVPush PRN (11:00)
[2018-06-23] MEDS: INSULIN REGULAR 100 UNITS/ML, 3ML VIAL SQ-INSULIN SCH ×3 (11:00→20:49)
[2018-06-23] MEDS ORDERED: GLUCAGON 1 MG IM PRN (11:00)
[2018-06-23] MEDS: ACETAMINOPHEN 325 MG TABLET PO PRN ×3 (12:29→22:41)
[2018-06-23] MEDS ORDERED: GUAIFENESIN 100 MG/5 ML, 5ML UDC PO PRN (13:30)
[2018-06-23 19:28] VITALS: BP 115/62
[2018-06-23] MEDS ORDERED: CLOPIDOGREL 300 MG TABLET ONE (20:29)
[2018-06-23] MEDS: SODIUM CHLORIDE FLUSH 10ML SYR IVF SCH (20:33)
[2018-06-23] MEDS ORDERED: ATORVASTATIN 80 MG TABLET PO SCH (21:00)
[2018-06-23] MEDS ORDERED: GABAPENTIN 300 MG CAPSULE PO SCH (21:00)
[2018-06-24 01:25] VITALS: BP 102/50
[2018-06-24 06:13] LABS: ANION GAP 10 mmol/L (5-15); BASOPHILS # (AUTO) 0.01 x10^3/uL (0-0.1); BASOPHILS % (AUTO) 0 % (0-1); CALCIUM 9.1 mg/dL (8.5-10.1); CHLORIDE 106 mmol/L (98-107); CREATININE 1.22 mg/dL (0.55-1.02); EOSINOPHILS # (AUTO) 0.22 x10^3/uL (0-0.4); EOSINOPHILS % (AUTO) 2 % (1-7); LYMPHOCYTES % (AUTO) 7 % (22-44); MD NO; MEAN CORPUSCULAR HEMOGLOBIN 29.7 pg (27.0-34.8); MEAN CORPUSCULAR HGB CONC 32.6 g/dL (32.4-35.8); MEAN CORPUSCULAR VOLUME 90.9 fL (80-100); MEAN PLATELET VOLUME 9.2 fL (7.4-10.4); MONOCYTES % (AUTO) 7 % (2-9); NEUTROPHILS # (AUTO) 11.23 x10^3/uL (1.8-6.8); NEUTROPHILS % (AUTO) 85 % (42-75); PLATELET COUNT 202 x10^3/uL (130-400); RED BLOOD COUNT 4.21 x10^6/uL (3.82-5.3)
[2018-06-24 07:30] VITALS: BP 111/62
[2018-06-24] MEDS: INSULIN REGULAR 100 UNITS/ML, 3ML VIAL SQ-INSULIN SCH ×2 (07:57→12:16)
[2018-06-24] MEDS ORDERED: FERROUS FUMARATE PO SCH (09:00)
[2018-06-24] MEDS ORDERED: ASCORBIC ACID PO SCH (09:00)
[2018-06-24] MEDS ORDERED: TEMPLATE NON-FORMULARY MED. (Empagliflozin (Jardiance) 1 TAB) PO SCH (09:00)
[2018-06-24] MEDS ORDERED: MULTIVITAMIN 1 TABLET PO SCH (09:00)
[2018-06-24] MEDS ORDERED: LOSARTAN 50MG TABLET PO SCH (09:00)
[2018-06-24] MEDS ORDERED: [UNRECOGNIZED DRUG - OTHER] PO SCH (09:00)
[2018-06-24] MEDS ORDERED: CLOPIDOGREL 75 MG TABLET PO SCH (09:00)
[2018-06-24] MEDS ORDERED: PIOGLITAZONE 15 MG TABLET PO SCH (09:00)
[2018-06-24] MEDS: SODIUM CHLORIDE FLUSH 10ML SYR IVF SCH (10:08)
[2018-06-24] MEDS: ASPIRIN 81 MG TABLET EC PO SCH (10:16)
[2018-06-24 12:42] VITALS: BP 101/61
[2018-06-24] MEDS: ACETAMINOPHEN 325 MG TABLET PO PRN (15:10)
[2018-06-24] MEDS ORDERED: CLOP75TA PO (15:11)
[2018-06-24] MEDS ORDERED: ACET325T14 PO (15:11)
[2018-06-25] MEDS ORDERED: Empagliflozin (Jardiance) 10 MG) HOMEMEDPO SCH (09:00)
== END 2018-06-24 16:10 | disposition home or self-care (01) | DRG 266 ==
LOC: ORIP 07:37 → ICU 10:53 → 5SO 18:16 → DCLOUNGE 06-24 15:46
PROVIDERS: ADMIT Internal Medicine Cardiovascular Disease; ATTEND Internal Medicine Cardiovascular Disease
PROC: B246ZZ4 Ultrasonography of Right and Left Heart, Transesophageal (ICD-10-PCS; 2018-06-23)
PROC: 02RF38Z Replacement of Aortic Valve with Zooplastic Tissue, Percutaneous Approach (ICD-10-PCS; principal; 2018-06-23 10:00)
DX: I08.0 Rheumatic disorders of both mitral and aortic valves (principal); Z00.6 Encounter for examination for normal comparison and control in clinical research program; I50.33 Acute on chronic diastolic (congestive) heart failure; I25.10 Atherosclerotic heart disease of native coronary artery without angina pectoris; I11.0 Hypertensive heart disease with heart failure; E10.9 Type 1 diabetes mellitus without complications; E78.2 Mixed hyperlipidemia; Z85.3 Personal history of malignant neoplasm of breast; Z79.4 Long term (current) use of insulin
CPT/HCPCS: 33361; 36415; 80048; 80053; 82962; 83880; 85025; 85347; 85610; 85730; 86850; 86900; 86923; 87081; 93005; 93306; 93312; 93321; 93325; 93355; C1731; C1760; C1769; C1894; G0378; J1100; J1815; J2405; J2704; J2720; J3010; J0330; J0360; J1200; J2370; J2930; J3490; J7030; Q9967

== ENCOUNTER → 2018-07-21 | Outpatient (CLI) | payer MEDICARE ==
[~2018-07-21] MED LIST changes: +ACET325T14 PO; +CHOL100012 PO; +CLOP75TA PO; +LACT1CAP35 PO
== END | disposition home or self-care (01) ==
LOC: CVU 09:47
PROVIDERS: ATTEND Internal Medicine Cardiovascular Disease
DX: I37.1 Nonrheumatic pulmonary valve insufficiency (principal); I10 Essential (primary) hypertension; E78.5 Hyperlipidemia, unspecified; E11.9 Type 2 diabetes mellitus without complications
CPT/HCPCS: 93306

== ENCOUNTER → 2018-08-31 | Outpatient (CLI) | payer MEDICARE | END | disposition home or self-care (01) | LOC: WOUND 12:48 | PROVIDERS: ATTEND Internal Medicine | DX: E11.622 Type 2 diabetes mellitus with other skin ulcer (principal); L89.150 Pressure ulcer of sacral region, unstageable; I10 Essential (primary) hypertension; E78.00 Pure hypercholesterolemia, unspecified; E78.5 Hyperlipidemia, unspecified; Z79.4 Long term (current) use of insulin | CPT/HCPCS: 97597; G0463 ==

== ENCOUNTER → 2018-09-07 | Outpatient (CLI) | payer MEDICARE | END | disposition home or self-care (01) | LOC: WOUND 10:08 | PROVIDERS: ATTEND Internal Medicine | DX: E11.622 Type 2 diabetes mellitus with other skin ulcer (principal); L89.150 Pressure ulcer of sacral region, unstageable; I10 Essential (primary) hypertension; E78.00 Pure hypercholesterolemia, unspecified; E78.5 Hyperlipidemia, unspecified; Z79.4 Long term (current) use of insulin | CPT/HCPCS: 97597 ==

== ENCOUNTER → 2018-09-14 | Outpatient (CLI) | payer MEDICARE | END | disposition home or self-care (01) | LOC: WOUND 10:31 | PROVIDERS: ATTEND Internal Medicine | DX: E11.622 Type 2 diabetes mellitus with other skin ulcer (principal); L89.150 Pressure ulcer of sacral region, unstageable; I10 Essential (primary) hypertension; E78.00 Pure hypercholesterolemia, unspecified; E78.5 Hyperlipidemia, unspecified; Z79.4 Long term (current) use of insulin | CPT/HCPCS: 97597 ==

== ENCOUNTER → 2018-09-21 | Outpatient (CLI) | payer MEDICARE | END | disposition home or self-care (01) | LOC: WOUND 14:12 | PROVIDERS: ATTEND Internal Medicine | DX: E11.622 Type 2 diabetes mellitus with other skin ulcer (principal); L89.150 Pressure ulcer of sacral region, unstageable; I10 Essential (primary) hypertension; E78.00 Pure hypercholesterolemia, unspecified; E78.5 Hyperlipidemia, unspecified; Z79.4 Long term (current) use of insulin | CPT/HCPCS: 97597 ==

== ENCOUNTER → 2018-09-28 | Outpatient (CLI) | payer MEDICARE | END | disposition home or self-care (01) | LOC: WOUND 13:05 | PROVIDERS: ATTEND Internal Medicine | DX: E11.622 Type 2 diabetes mellitus with other skin ulcer (principal); L89.152 Pressure ulcer of sacral region, stage 2; I10 Essential (primary) hypertension; E78.00 Pure hypercholesterolemia, unspecified; E78.5 Hyperlipidemia, unspecified; Z79.4 Long term (current) use of insulin | CPT/HCPCS: 97597 ==

== ENCOUNTER 2018-10-05 13:00 | Outpatient (CLI) | payer MEDICARE | END 2018-10-05 23:59 | disposition home or self-care (01) | LOC: WOUND 13:00 | PROVIDERS: ATTEND Internal Medicine | DX: E11.622 Type 2 diabetes mellitus with other skin ulcer (principal); L89.150 Pressure ulcer of sacral region, unstageable; I10 Essential (primary) hypertension; E78.00 Pure hypercholesterolemia, unspecified; E78.5 Hyperlipidemia, unspecified; Z79.4 Long term (current) use of insulin | CPT/HCPCS: G0463 ==

== ENCOUNTER 2018-11-18 10:01 | Outpatient (CLI) | payer MEDICARE ==
[2018-11-18] MEDS ORDERED: CLOP75TA PO (10:34)
[2018-11-18] MEDS ORDERED: CETI-158 PO (10:34)
[2018-11-18] MEDS ORDERED: IRON45TA6 PO (10:34)
[2018-11-18 11:31] LABS: ALBUMIN 3.7 g/dL (3.4-5.0); ANION GAP 6 mmol/L (5-15); CALCIUM 9.3 mg/dL (8.5-10.1); CHLORIDE 111 mmol/L (98-107)
[2018-11-18 11:35] LABS: ALANINE AMINOTRANSFERASE 28 U/L (12-78); ALKALINE PHOSPHATASE 100 U/L (45-117); BILIRUBIN,TOTAL 0.3 mg/dL (0.2-1.0); CREATININE 1.14 mg/dL (0.55-1.02); TOTAL PROTEIN 7.6 g/dL (6.4-8.2)
[2018-11-26] MEDS ORDERED: OXYC5TAB3 PO (15:33)
== END 2018-11-18 23:59 | disposition home or self-care (01) ==
LOC: STAR 10:01
PROVIDERS: ATTEND Orthopaedic Surgery
DX: Z01.818 Encounter for other preprocedural examination (principal); S42.291A Other displaced fracture of upper end of right humerus, initial encounter for closed fracture
CPT/HCPCS: 36415; 80053; 93005

== ENCOUNTER 2019-02-15 10:19 | Outpatient (CLI) | payer BC, MEDICARE ==
[~2019-02-15 10:19] MED LIST changes: +CETI-158 PO; +IRON45TA6 PO; +OXYC5TAB3 PO
== END 2019-02-15 23:59 | disposition home or self-care (01) ==
LOC: CFH 10:19
PROVIDERS: ATTEND Physician Assistant
DX: Z12.31 Encounter for screening mammogram for malignant neoplasm of breast (principal); N64.89 Other specified disorders of breast; Z85.3 Personal history of malignant neoplasm of breast; Z92.3 Personal history of irradiation
CPT/HCPCS: 77063; 77067

== ENCOUNTER 2019-06-22 09:22 | Outpatient (CLI) | payer MEDICARE | END 2019-06-22 23:59 | disposition home or self-care (01) | LOC: CVU 09:22 | PROVIDERS: ATTEND Internal Medicine Cardiovascular Disease | DX: I05.0 Rheumatic mitral stenosis (principal); I65.29 Occlusion and stenosis of unspecified carotid artery; R06.02 Shortness of breath; I10 Essential (primary) hypertension; E78.5 Hyperlipidemia, unspecified | CPT/HCPCS: 93306 ==

== ENCOUNTER → 2020-02-18 | Outpatient (CLI) | payer MEDICARE | END | disposition home or self-care (01) | LOC: CFH 11:51 | PROVIDERS: ATTEND Physician Assistant | DX: Z12.31 Encounter for screening mammogram for malignant neoplasm of breast (principal) | CPT/HCPCS: 77063; 77067 ==

== ENCOUNTER → 2020-05-09 | Outpatient (CLI) | payer MEDICARE ==
[~2020-05-09] MED LIST changes: -OXYC5TAB3 PO; +OXYC5TAB98 PO
== END | disposition home or self-care (01) ==
LOC: CFH 11:20
DX: Z13.820 Encounter for screening for osteoporosis (principal); M81.0 Age-related osteoporosis without current pathological fracture; N95.9 Unspecified menopausal and perimenopausal disorder
CPT/HCPCS: 77080